=== PATIENT | male | born 1990 | race Hispanic/Latino ===

== ENCOUNTER 2019-11-16 06:51 | Emergency (ER) | payer SELFPAY ==
[2019-11-16] MEDS ORDERED: Lidocaine 1% PF 5 ML VIAL ONE (07:23)
[2019-11-16] MEDS ORDERED: Lidocaine 1% (PF) 30 ML VIAL ONE (07:23)
== END 2019-11-16 08:45 | disposition home or self-care (01) ==
LOC: ERS 06:51
DX: S31.21XA Laceration without foreign body of penis, initial encounter (principal); X58.XXXA Exposure to other specified factors, initial encounter
CPT/HCPCS: 12002; J2001